=== PATIENT | male | born 1990 | race Caucasian/White ===

== ENCOUNTER 2022-02-24 20:27 | Emergency (ER) | payer MEDICAID ==
[~2022-02-24] VITALS: Ht 177.8 cm; Wt 77.0 kg
[2022-02-24 20:52] VITALS: BP 150/80
== END 2022-02-24 21:45 | disposition home or self-care (01) ==
LOC: ER 20:27
DX: M79.605 Pain in left leg (principal)
CPT/HCPCS: 99281

== ENCOUNTER 2022-02-25 07:35 | Emergency (ER) | payer MEDICAID ==
[~2022-02-25] VITALS: Ht 172.7 cm; Wt 68.0 kg
[2022-02-25 07:38] VITALS: BP 112/70
[2022-02-25 08:55] LABS: BASOPHILS % 0.3 % (0.0-2.0); EOSINOPHILS % 1.3 % (0.0-5.0); HEMATOCRIT. 45.7 % (42.0-52.0); HEMOGLOBIN. 15.5 g/dL (14.0-18.0); LYMPHOCYTES % 15.3 % (20.0-50.0); MEAN CORPUSCULAR HEMOGLOBIN 30.6 pg (28.0-32.0); MEAN CORPUSCULAR VOLUME 90.4 fL (80.0-94.0); MEAN PLATELET VOLUME 8.1 fl (7.4-10.4); NEUTROPHILS % 73.1 % (40.0-76.0); PLATELET 251 x1000/uL (130-400); RED BLOOD CELL COUNT 5.06 mill/uL (4.7-6.1); RED CELL DISTRIBUTION WIDTH 14.6 % (11.6-14.6)
[2022-02-25 09:03] LABS: CHLORIDE 110 mEq/L (98-107)
[2022-02-25 09:11] LABS: ETHANOL BLOOD < 10 mg/dL
== END 2022-02-25 12:18 | disposition left against medical advice (07) ==
LOC: ER 07:35
DX: G89.29 Other chronic pain (principal); M79.662 Pain in left lower leg; F20.9 Schizophrenia, unspecified
CPT/HCPCS: 36415; 80053; 80320; 85025; 99283; G0480

== ENCOUNTER 2022-02-27 12:47 | Emergency (ER) | payer MEDICAID ==
[~2022-02-27] VITALS: Ht 180.3 cm; Wt 79.0 kg
[2022-02-27] MEDS ORDERED: KETOROLAC 30MG/ML VIAL IV STA (13:11)
[2022-02-27] MEDS ORDERED: SODIUM CHLORIDE 0.9% 1,000 ML IV ONE (13:15)
[2022-02-27 14:51] LABS: BASOPHILS % 0.2 % (0.0-2.0); EOSINOPHILS % 1.8 % (0.0-5.0); HEMATOCRIT. 44.1 % (42.0-52.0); HEMOGLOBIN. 15.1 g/dL (14.0-18.0); LYMPHOCYTES % 18.4 % (20.0-50.0); MEAN CORPUSCULAR HEMOGLOBIN 30.9 pg (28.0-32.0); MEAN PLATELET VOLUME 8.6 fl (7.4-10.4); MONOCYTES % 10.7 % (2.0-8.0); NEUTROPHILS % 68.9 % (40.0-76.0); PLATELET 234 x1000/uL (130-400); RED CELL DISTRIBUTION WIDTH 14.4 % (11.6-14.6)
[2022-02-27 15:01] LABS: CHLORIDE 106 mEq/L (98-107)
[2022-02-27 15:10] LABS: ETHANOL BLOOD < 10 mg/dL
[2022-02-28 04:28] LABS: *AMPHETAMINES SCREEN URINE NEGATIVE (NEGATIVE); *BARBITURATES SCREEN URINE NEGATIVE (NEGATIVE); *BENZODIAZEPINES SCREEN URINE NEGATIVE (NEGATIVE); *COCAINE SCREEN URINE NEGATIVE (NEGATIVE); CANNABINOID URINE SCREEN PRESUMTIVE POSITIVE (NEGATIVE); METHADONE URINE SCREEN NEGATIVE (NEGATIVE); OPIATES URINE SCREEN NEGATIVE (NEGATIVE); PHENCYCLIDINE URINE SCREEN NEGATIVE (NEGATIVE)
[2022-02-28 11:30] VITALS: BP 118/52
[2022-02-28] MEDS ORDERED: IBUP-2029 MT (12:07)
== END 2022-02-28 13:16 | disposition home or self-care (01) ==
LOC: ER 12:59 → CANBEDREQ 02-28 10:51 → ER 02-28 13:16
DX: T84.89XA Other specified complication of internal orthopedic prosthetic devices, implants and grafts, initial encounter (principal); G89.29 Other chronic pain; F31.9 Bipolar disorder, unspecified; F20.9 Schizophrenia, unspecified; F10.21 Alcohol dependence, in remission; Z20.822 Contact with and (suspected) exposure to COVID-19; Z87.81 Personal history of (healed) traumatic fracture; Y83.8 Other surgical procedures as the cause of abnormal reaction of the patient, or of later complication, without mention of misadventure at the time of the procedure; Y92.018 Other place in single-family (private) house as the place of occurrence of the external cause
CPT/HCPCS: 29505; 36415; 73502; 73552; 73560; 80053; 80305; 80320; 85025; 87426; 93970; 96361; 96374; 99285; C9803; J1885; J7030; G0480